=== PATIENT | female | born 1940 | race Caucasian/White ===

== ENCOUNTER 2017-07-21 16:10 | Observation (INO) | payer MEDICARE, OTHER ==
[2017-07-21] MEDS ORDERED: Albuterol/Ipratropium 3.0-0.5 MG/3 ML Neb Soln NEB ONE (16:20)
[2017-07-21] MEDS ORDERED: methylPREDNISolone Sodium Succinate 125 MG/2 ML SDV IVPUSH ONE (16:20)
[2017-07-21] MEDS ORDERED: Sodium Chloride 0.9% 10 ML Syringe FLUSH PRN (16:22)
[2017-07-21] MEDS ORDERED: Sodium Chloride 0.9% 2.5 ML Syringe FLUSH PRN (16:22)
--- NOTE | 2017-07-21 16:24 | EDM.PDOC ---
ED HPI GENERAL MEDICAL PROBLEM - General Chief Complaint: Respiratory Problem Stated Complaint: DIFFICULTY BREATHING Time Seen by Provider: 07/21/17 16:17 - History of Present Illness INITIAL COMMENTS - FREE TEXT/NARRATIVE: HISTORY AND PHYSICAL: History of present illness: Patient is 77-year-old white female history of severe COPD who was been medically noncompliant for years was on home O2 and is on no other therapy percent concern of shortness of breath that has gotten severe and has been progressively worse over last several days has been no chest pain vomiting reported or other concerns on arrival here patient is saturating in the 70s. She was placed on a nonrebreather upon arrival in the setting now in the low 90s but remains in moderate to severe distress. Review of systems: As per history of present illness and below otherwise all systems reviewed and negative. Past medical history: As per history of present illness and as reviewed below otherwise noncontributory. Surgical history: As per history of present illness and as reviewed below otherwise noncontributory. Social history: No reported history of drug or alcohol abuse. Family history: As per history of present illness and as reviewed below otherwise noncontributory. Physical exam: HEENT: Atraumatic, normocephalic, pupils reactive, negative for conjunctival pallor or scleral icterus, mucous membranes moist, throat clear, neck supple, nontender, trachea midline. Lungs: Markedly diminished, breath sounds equal bilaterally, chest nontender. Heart: S1S2, regular, negative for clicks, rubs, or JVD. Abdomen: Soft, nondistended, nontender. Negative for masses or hepatosplenomegaly. Negative for costovertebral tenderness. Pelvis: Stable nontender. Genitourinary: Deferred. Rectal: Deferred. Extremities: Atraumatic, negative for cords or calf pain. Neurovascular unremarkable. Neuro: Awake, alert, oriented. Cranial nerves II through XII unremarkable. Cerebellum unremarkable. Motor and sensory unremarkable throughout. Exam nonfocal. Diagnostics: CBC CMP troponin ABG influenza screen chest x-ray EKG PT/INR Therapeutics: IV O2 monitor albuterol ipratropium nebulizer Medrol 125 mg IV Impression: #1 COPD with exacerbation #2 medical noncompliance Definitive disposition and diagnosis as appropriate pending reevaluation and review of above. - Related Data Allergies Allergy/AdvReac Type Severity Reaction Status Date / Time No Known Allergies Allergy Verified 07/21/17 16:24 Home Meds: Home Meds . [No Known Home Meds] 07/21/17 [History] Past Medical History Respiratory History: Reports: COPD - Past Surgical History HEENT Surgical History: Reports: Other (See Below) Other HEENT Surgeries/Procedures: rhinoplasty GI Surgical History: Reports: Appendectomy Female Surgical History: Reports: Hysterectomy ED ROS GENERAL - Review of Systems Review Of Systems: ROS reveals no pertinent complaints other than HPI. ED EXAM, GENERAL - Physical Exam Exam: See Below (See dictation) Course - Vital Signs Last Recorded V/S: Last Vital Signs Temp 36.6 C 07/21/17 16:24 Pulse 81 07/21/17 16:24 Resp 28 H 07/21/17 16:24 BP 165/78 H 07/21/17 16:24 Pulse Ox 78 L 07/21/17 16:24 - Orders/Labs/Meds Orders: Active Orders 24 hr Category Date Time Status Cardiac Monitoring [RC] . DIRECTED Care 07/21/17 16:20 Active EKG Documentation Completion [RC] STAT Care 07/21/17 16:20 Active Oxygen Therapy, ED [RC] ASDIRECTED Care 07/21/17 16:20 Active Pulse Oximetry [RC] ASDIRECTED Care 07/21/17 16:20 Active RT Aerosol Therapy [RC] ASDIRECTED Care 07/21/17 16:22 Active Chest 1V Frontal [CR] Stat Exams 07/21/17 16:20 Ordered COMPREHENSIVE METABOLIC PN,CMP [CHEM] Stat Lab 07/21/17 16:40 Results INFLUENZA A+B AG SCREEN [RM] Stat Lab 07/21/17 17:19 Received INR,PT,PROTHROMBIN TIME [COAG] Stat Lab 07/21/17 16:20 Ordered TROPONIN I [CHEM] Stat Lab 07/21/17 16:40 Results UA W/MICROSCOPIC [URIN] Stat Lab 07/21/17 16:20 Ordered Sodium Chloride 0.9% [Normal Saline] 1,000 ml Med 07/21/17 16:30 Active IV STAT Sodium Chloride 0.9% [Saline Flush] Med 07/21/17 16:22 Active 10 ml FLUSH ASDIRECTED PRN Sodium Chloride 0.9% [Saline Flush] Med 07/21/17 16:22 Active 2.5 ml FLUSH ASDIRECTED PRN Saline Lock Insert [OM.PC] Stat Oth 07/21/17 16:20 Ordered Medication Orders Sodium Chloride (Normal Saline) 1,000 mls @ 125 mls/hr IV STAT MARIFER Last Admin: 07/21/17 16:59 Dose: 125 mls/hr Sodium Chloride (Saline Flush) 10 ml FLUSH ASDIRECTED PRN PRN Reason: Keep Vein Open Sodium Chloride (Saline Flush) 2.5 ml FLUSH ASDIRECTED PRN PRN Reason: Keep Vein Open Labs: Laboratory Tests 07/21/17 07/21/17 07/21/17 Range/Units 16:27 16:27 16:40 WBC 4.56 (4.0-11.0) K/uL RBC 4.53 (4.30-5.90) M/uL Hgb 13.9 (12.0-16.0) g/dL Hct 42.4 (36.0-46.0) % MCV 93.6 (80.0-98.0) fL MCH 30.7 (27.0-32.0) pg MCHC 32.8 (31.0-37.0) g/dL RDW Std Deviation 47.7 (28.0-62.0) fl RDW Coeff of Crissy 14 (11.0-15.0) % Plt Count 147 L (150-400) K/uL MPV 9.10 (7.40-12.00) fL Neut % (Auto) 51.9 (48.0-80.0) % Lymph % (Auto) 34.9 (16.0-40.0) % Park % (Auto) 8.8 (0.0-15.0) % Eos % (Auto) 3.7 (0.0-7.0) % Baso % (Auto) 0.7 (0.0-1.5) % Neut # (Auto) 2.4 (1.4-5.7) K/uL Lymph # (Auto) 1.6 (0.6-2.4) K/uL Park # (Auto) 0.4 (0.0-0.8) K/uL Eos # (Auto) 0.2 (0.0-0.7) K/uL Baso # (Auto) 0.0 (0.0-0.1) K/uL Nucleated RBC % 0.0 /100WBC Nucleated RBCs # 0 K/uL ABG pH (7.35-7.45) ABG pCO2 (35-45) mmHG ABG pO2 (75-100) mmHG ABG HCO3 (22-26) mEq/L ABG Total CO2 ABG Base Excess (-2.0-2.0) Sodium 140 (136-146) mmol/L Potassium 3.8 (3.5-5.1) mmol/L Chloride 103 (98-110) mmol/L Carbon Dioxide 26 (21-31) mmol/L BUN 17 (6.0-23.0) mg/dL Creatinine 0.8 (0.6-1.5) mg/dL Est Cr Clr Drug Dosing TNP Estimated GFR (MDRD) > 60.0 ml/min Glucose 113 H (60-110) mg/dL Calcium 9.9 (8.8-10.8) mg/dL Total Bilirubin 0.3 (0.1-1.5) mg/dL AST 23 (5-40) IU/L ALT 17 (8-54) IU/L Alkaline Phosphatase 64 (40-150) B-Natriuretic Peptide 53 (<100) PG/ML Total Protein 6.8 (6.0-8.0) g/dL Albumin 4.2 (3.4-4.8) g/dL Globulin 2.6 (2.0-3.5) g/dL Albumin/Globulin Ratio 1.6 (1.3-2.8) 07/21/17 Range/Units 16:45 WBC (4.0-11.0) K/uL RBC (4.30-5.90) M/uL Hgb (12.0-16.0) g/dL Hct (36.0-46.0) % MCV (80.0-98.0) fL MCH (27.0-32.0) pg MCHC (31.0-37.0) g/dL RDW Std Deviation (28.0-62.0) fl RDW Coeff of Crissy (11.0-15.0) % Plt Count (150-400) K/uL MPV (7.40-12.00) fL Neut % (Auto) (48.0-80.0) % Lymph % (Auto) (16.0-40.0) % Park % (Auto) (0.0-15.0) % Eos % (Auto) (0.0-7.0) % Baso % (Auto) (0.0-1.5) % Neut # (Auto) (1.4-5.7) K/uL Lymph # (Auto) (0.6-2.4) K/uL Park # (Auto) (0.0-0.8) K/uL Eos # (Auto) (0.0-0.7) K/uL Baso # (Auto) (0.0-0.1) K/uL Nucleated RBC % /100WBC Nucleated RBCs # K/uL ABG pH 7.441 (7.35-7.45) ABG pCO2 44 (35-45) mmHG ABG pO2 81 (75-100) mmHG ABG HCO3 30 H (22-26) mEq/L ABG Total CO2 26.4 ABG Base Excess 4.8 H (-2.0-2.0) Sodium (136-146) mmol/L Potassium (3.5-5.1) mmol/L Chloride (98-110) mmol/L Carbon Dioxide (21-31) mmol/L BUN (6.0-23.0) mg/dL Creatinine (0.6-1.5) mg/dL Est Cr Clr Drug Dosing Estimated GFR (MDRD) ml/min Glucose (60-110) mg/dL Calcium (8.8-10.8) mg/dL Total Bilirubin (0.1-1.5) mg/dL AST (5-40) IU/L ALT (8-54) IU/L Alkaline Phosphatase (40-150) B-Natriuretic Peptide (<100) PG/ML Total Protein (6.0-8.0) g/dL Albumin (3.4-4.8) g/dL Globulin (2.0-3.5) g/dL Albumin/Globulin Ratio (1.3-2.8) Meds: Medications Generic Name Dose Route Start Last Admin Trade Name Freq PRN Reason Stop Dose Admin Sodium Chloride 1,000 mls @ 125 mls/hr 07/21/17 16:30 07/21/17 16:59 Normal Saline IV 125 mls/hr STAT MARIFER Administration Sodium Chloride 10 ml 07/21/17 16:22 Saline Flush FLUSH ASDIRECTED PRN Keep Vein Open Sodium Chloride 2.5 ml 07/21/17 16:22 Saline Flush FLUSH ASDIRECTED PRN Keep Vein Open Discontinued Medications Generic Name Dose Route Start Last Admin Trade Name Thong PRN Reason Stop Dose Admin Albuterol/Ipratropium 3 ml 07/21/17 16:20 07/21/17 16:32 Duoneb 3.0-0.5 Mg/3 Ml NEB 07/21/17 16:21 3 ml ONETIME ONE Administration Methylprednisolone Sodium Succinate 125 mg 07/21/17 16:20 07/21/17 16:32 Solu-Medrol IVPUSH 07/21/17 16:21 125 mg ONETIME ONE Administration Departure - Departure Time of Disposition: 17:29 Disposition: Refer to Observation Condition: Good, Fair Clinical Impression: COPD exacerbation - Discharge Information Referrals: Samuel Zamora [Primary Care Provider] - Forms: ED Department Discharge - My Orders Last 24 Hours: My Active Orders 07/21/17 16:20 Cardiac Monitoring [RC] . DIRECTED EKG Documentation Completion [RC] STAT Oxygen Therapy, ED [RC] ASDIRECTED Pulse Oximetry [RC] ASDIRECTED Chest 1V Frontal [CR] Stat INR,PT,PROTHROMBIN TIME [COAG] Stat UA W/MICROSCOPIC [URIN] Stat Saline Lock Insert [OM.PC] Stat 07/21/17 16:22 RT Aerosol Therapy [RC] ASDIRECTED Sodium Chloride 0.9% [Saline Flush] 10 ml FLUSH ASDIRECTED PRN Sodium Chloride 0.9% [Saline Flush] 2.5 ml FLUSH ASDIRECTED PRN 07/21/17 16:30 Sodium Chloride 0.9% [Normal Saline] 1,000 ml IV STAT 07/21/17 16:40 COMPREHENSIVE METABOLIC PN,CMP [CHEM] Stat TROPONIN I [CHEM] Stat 07/21/17 17:19 INFLUENZA A+B AG SCREEN [RM] Stat - Assessment/Plan Last 24 Hours: My Active Orders 07/21/17 16:20 Cardiac Monitoring [RC] . DIRECTED EKG Documentation Completion [RC] STAT Oxygen Therapy, ED [RC] ASDIRECTED Pulse Oximetry [RC] ASDIRECTED Chest 1V Frontal [CR] Stat INR,PT,PROTHROMBIN TIME [COAG] Stat UA W/MICROSCOPIC [URIN] Stat Saline Lock Insert [OM.PC] Stat 07/21/17 16:22 RT Aerosol Therapy [RC] ASDIRECTED Sodium Chloride 0.9% [Saline Flush] 10 ml FLUSH ASDIRECTED PRN Sodium Chloride 0.9% [Saline Flush] 2.5 ml FLUSH ASDIRECTED PRN 07/21/17 16:30 Sodium Chloride 0.9% [Normal Saline] 1,000 ml IV STAT 07/21/17 16:40 COMPREHENSIVE METABOLIC PN,CMP [CHEM] Stat TROPONIN I [CHEM] Stat 07/21/17 17:19 INFLUENZA A+B AG SCREEN [RM] Stat
[2017-07-21] MEDS ORDERED: Sodium Chloride 0.9% 1,000 ML IV SCH (16:30)
[2017-07-21 17:21] LABS: CHLORIDE,CL 103 mmol/L (98-110); SODIUM,NA 140 mmol/L (136-146)
[2017-07-21] MEDS ORDERED: Morphine 2 MG/ML Syringe IVPUSH PRN (18:20)
[2017-07-21] MEDS ORDERED: Acetaminophen 325 MG Tab PO PRN (18:20)
[2017-07-21] MEDS ORDERED: Ondansetron 4 MG Tab.DIS PO PRN (18:20)
[2017-07-21] MEDS ORDERED: Ondansetron 4 MG/2 ML SDV IVPUSH PRN (18:20)
--- NOTE | 2017-07-21 18:20 | PCM.HP ---
H&P History of Present Illness - General Date of Service: 07/21/17 Admit Problem/Dx: Admission Diagnosis/Problem Admission Diagnosis/Problem COPD, Moderate chronic obstructive pulmonary disease Source of Information: Patient, Family History Limitations: Reports: No Limitations - History of Present Illness Initial Comments - Free Text/Narative: 77-year-old email presenting to emergency department with chief complaint of shortness of breath 2-3 days with past medical history of severe end-stage COPD on supplemental home O2 2 L per nasal cannula and history of medication noncompliance. Patient initially presented to the emergency department with a chief complaint of shortness of breath significantly getting worse over the past 2-3 days. She states that it has been getting worse over the past 3 months. She has a history of severe COPD end stage and has been noncompliant in the past with her medications. She does see Dr. Zamora as her PCP. She denies any chest pain, palpitations, syncopal episodes, focal neurologic deficits, nausea, vomiting, or sore throat. She does report some suprapubic tenderness. Approximately 1 month ago she was diagnosed with a UTI by her PCP Dr. Zamora. E. faecalis was the isolated organism and she was treated at that time. She did not receive her influenza vaccine this year. When she initially presented to emergency department her oxygen saturation was in the 70s. After placement of nonrebreather as well duo nebs and Solu-Medrol patient did improve to low 90s. Emergency department: CBC, INR, ABG, CMP, chest x-ray were all unremarkable. Influenza screen was negative. Urinalysis was pending. BNP and troponin unremarkable. Patient was given 1 L normal saline as well as 125 mg IV Solu-Medrol and duo nebs 1. Patient was admitted for moderate COPD exacerbation. - Related Data Allergies/Adverse Reactions: Allergies Allergy/AdvReac Type Severity Reaction Status Date / Time No Known Allergies Allergy Verified 07/21/17 16:24 Home Medications: Home Meds . [No Known Home Meds] 07/21/17 [History] Past Medical History HEENT History: Reports: None Cardiovascular History: Reports: None Respiratory History: Reports: COPD Gastrointestinal History: Reports: None Genitourinary History: Reports: None HOUSEKEEPER HEAD History: Reports: None Musculoskeletal History: Reports: None Neurological History: Reports: None Psychiatric History: Reports: None Endocrine/Metabolic History: Reports: None Hematologic History: Reports: None Immunologic History: Reports: None Oncologic (Cancer) History: Reports: None Dermatologic History: Reports: None - Infectious Disease History Infectious Disease History: Reports: Chicken Pox, Measles, Mumps, Shingles - Past Surgical History HEENT Surgical History: Reports: Other (See Below) Other HEENT Surgeries/Procedures: rhinoplasty GI Surgical History: Reports: Appendectomy Female Surgical History: Reports: Hysterectomy Social & Family History - Family History Family Medical History: Noncontributory - Tobacco Use Smoking Status *Q: Never Smoker Second Hand Smoke Exposure: No - Caffeine Use Caffeine Use: Reports: Coffee - Recreational Drug Use Recreational Drug Use: No H&P Review of Systems - Review of Systems: Review Of Systems: See Below General: Reports: Weakness, Fatigue. Denies: Fever, Chills, Malaise HEENT: Denies: Dysphasia, Headaches, Sore Throat Pulmonary: Reports: Shortness of Breath, Wheezing, Cough. Denies: Pleuritic Chest Pain, Sputum Cardiovascular: Denies: Chest Pain, Palpitations, Edema Gastrointestinal: Denies: Abdominal Pain, Black Stool, Bloody Stool, Constipation, Diarrhea, Nausea, Vomiting Genitourinary: Reports: Pain. Denies: Dysuria, Burning, Hematuria, Flank Pain Musculoskeletal: Denies: Neck Pain, Leg Pain Skin: Denies: Cyanosis Psychiatric: Denies: Confusion Neurological: Denies: Confusion, Dizziness, Headache Hematologic/Lymphatic: Denies: Anemia Immunologic: Denies: Anaphylaxis Exam - Exam Exam: See Below - Vital Signs Vital Signs: Last Vital Signs Temp 97.8 F 07/21/17 16:24 Pulse 84 07/21/17 18:11 Resp 20 07/21/17 18:11 BP 170/70 H 07/21/17 18:11 Pulse Ox 96 07/21/17 18:11 Weight: 48.534 kg - Exam Quality Assessment: Supplemental Oxygen, DVT Prophylaxis General: Alert, Oriented, Cooperative, Mild Distress HEENT: Conjunctiva Clear, EACs Clear, EOMI, Hearing Intact, Mucosa Moist & [place] , Nares Patent, Normal Nasal Septum, Posterior Pharynx Clear, PERRLA Neck: Supple, Trachea Midline, 2 Lungs: Normal Respiratory Effort, Decreased Breath Sounds, Wheezing Cardiovascular: Regular Rate, Regular Rhythm GI/Abdominal Exam: Normal Bowel Sounds, Soft, No Organomegaly, No Distention, Tender (Suprapubic) (Female) Exam: Deferred Rectal (Female) Exam: Deferred Back Exam: Normal Inspection Extremities: Normal Inspection, Non-Tender, No Pedal Edema, Normal Capillary Refill Peripheral Pulses: 2+: Radial (L), Radial (R), Posterior Tibial (L), Posterior Tibial (R), Dorsalis Pedis (L), Dorsalis Pedis (R) Skin: Warm, Dry, Intact Neurological: Cranial Nerves Intact Neuro Extensive - Mental Status: Alert, Oriented x3, Normal Mood/Affect, Normal Cognition Neuro Extensive - Motor, Sensory, Reflexes: CN II-XII Intact Psychiatric: Alert, Normal Affect, Normal Mood - Patient Data Result Diagrams: 07/21/17 16:27 07/21/17 16:40 *Q Meaningful Use (ADM) - VTE *Q VTE Criteria *Q: - Stroke *Q Stroke Criteria *Q: - AMI *Q AMI Criteria *Q: - Problem List (1) On home oxygen therapy SNOMED Code(s): 020173010073 ICD Code: Z99.81 - DEPENDENCE ON SUPPLEMENTAL OXYGEN Status: Chronic Priority: High Current Visit: Yes (2) COPD exacerbation SNOMED Code(s): 392974178 ICD Code: J44.1 - CHRONIC OBSTRUCTIVE PULMONARY DISEASE W (ACUTE) EXACERBATION Status: Acute Priority: High Current Visit: Yes Problem List Initiated/Reviewed/Updated: Yes Orders Last 24hrs: Medication Orders Sodium Chloride (Normal Saline) 1,000 mls @ 125 mls/hr IV STAT MARIFER Last Admin: 07/21/17 16:59 Dose: 125 mls/hr Sodium Chloride (Saline Flush) 10 ml FLUSH ASDIRECTED PRN PRN Reason: Keep Vein Open Sodium Chloride (Saline Flush) 2.5 ml FLUSH ASDIRECTED PRN PRN Reason: Keep Vein Open Assessment/Plan Comment:: 77-year-old female admitted 07/21/17 for moderate COPD exacerbation with past medical history of end-stage COPD on home oxygen 2 L per nasal cannula. COPD exacerbation: We'll treat with Solu-Medrol 60 mg every 6 hours, DuoNeb's, and azithromycin 500 mg 1 today followed by 250 mg daily. Will monitor closely. Patient has been noncompliant in the past with her medications. She currently states that she does not take anything at home. She should be on multiple medications which will need to be discussed with the patient. Urinalysis is still pending at this time but patient does have a recent history of UTI and does have some mild suprapubic tenderness. There is no leukocytosis and patient was afebrile. Will monitor and wait for urinalysis to return. Talking with patient and daughter they are considering [facility] home placement for at least assisted living. We will need to talk to social media manager as this may be facilitated easier during this admission. VTE proph: SCD, heparin Dispo: 2-3 days pending
[2017-07-21] MEDS ORDERED: Azithromycin 250 MG Tab PO ONE (18:30)
[2017-07-21] MEDS: Albuterol/Ipratropium 3.0-0.5 MG/3 ML Neb Soln NEB SCH ×2 (20:13→23:41)
[2017-07-21] MEDS: methylPREDNISolone Sodium Succinate 125 MG/2 ML SDV IVPUSH SCH (21:59)
[2017-07-21] MEDS: Heparin Sodium 5,000 Units/ML Vial SUBCUT SCH (21:59)
[2017-07-22] MEDS: methylPREDNISolone Sodium Succinate 125 MG/2 ML SDV IVPUSH SCH ×2 (04:00→09:21)
[2017-07-22] MEDS: Albuterol/Ipratropium 3.0-0.5 MG/3 ML Neb Soln NEB SCH ×2 (05:55→11:29)
[2017-07-22 06:37] LABS: CHLORIDE,CL 107 mmol/L (98-110); SODIUM,NA 141 mmol/L (136-146)
[2017-07-22] MEDS: Heparin Sodium 5,000 Units/ML Vial SUBCUT SCH (09:22)
--- NOTE | 2017-07-22 11:44 | PCM.DCSUM1 ---
Discharge Summary - Hospital Course HPI Initial Comments: Discharge Summary Date of admission: 07/21/2017 Date of discharge: 07/22/2017 Admitting diagnosis: #1. Acute exacerbation of severe COPD symptoms with noncompliance to medication #2. Past medical history of urinary tract infection, sacral ulcers, increased need of assistance for daily living #3. #4. #5. Discharge diagnoses: #1. Acute exacerbation of severe COPD symptoms now resolving. #2. Past medical history tract infection patient in nature, sacral ulcers, increased need of assistance for daily living #3. #4. #5. Consultations: None Procedures: None Hospitalization course: Patient was admitted on 07/21/2018 secondary to moderate to severe exacerbation of her COPD symptoms. Patient is on baseline 2 L nasal cannula she required increased O2 support. Patient was put on Solu-Medrol 60 mg every 6 hours, dual nebs, azithromycin. Overnight patient started to do well from her COPD standpoint and when assessed on 07/22/2017 patient's COPD symptoms seem to be back to baseline. Patient stated that she does not take any inhaled medication for her COPD. Patient seems to be noncompliant with her medications. Decision was made to discharge the patient home on home health care. For home health : #1. Homebound: Patient is unsteady when she walks and is a fall risk she does need a walker to get around and ambulate safely and needs assistance from her daughters to navigate stairs and general ambulatory movements. Patient also has a sacral ulcer that also requires continuing attention. #2 need for skilled services: Patient requires RN to monitor medication administration and education. Patient is noncompliant with her medications and as result does need that increased monitoring. Patient also needs assessment of her sacral ulcer wound healing and assistance with dressing changes. #3 primary M.D. who will be following the patient at home: Dr. Samuel Zamora shall be following the patient for home health once discharged from the hospital. Disposition on discharge: Home with home health Condition on discharge: Stable Discharge medications: #1. Prednisone taper 16 days, #2 azithromycin for 5 days 250 mg #3 ipratropium inhaler daily, #4 salmeterol inhaler twice a day, #5. Albuterol inhaler when necessary for shortness of breath Follow-up instructions: Patient to follow-up with primary care physician Dr. Samuel Zamora as well as home health. - Discharge Data Discharge Date: 07/22/17 Discharge Disposition: Home, W Home Health Agency 06 Condition: Fair - Patient Instructions Diet: Heart Healthy Diet Activity: As Tolerated Driving: Do Not Drive Showering/Bathing: May Shower Notify Provider of: Fever, Increased Pain - Discharge Plan Prescriptions/Med Rec: Albuterol [IJP: Ventolin HFA] 2 puff INH .TWICE DAILY PRN 30 Days #18 gm PRN Reason: Shortness Of Breath Azithromycin [IMW: Azithromycin] 250 mg PO DAILY #5 tab Ipratropium [place] [Atrovent Hfa] 12.9 gm IH DAILY 30 Days #1 hfa.aer.ad Prednisone [IMW: predniSONE] See Taper PO WITHBREAKFAST #20 tab Salmeterol Xinafoate [Serevent Diskus] 1 puff INH Q12H 30 Days #1 diskus Home Medications: Home Meds Albuterol [IJP: Ventolin HFA] 2 puff INH .TWICE DAILY PRN 30 Days #18 gm [Rx] Azithromycin [IMW: Azithromycin] 250 mg PO DAILY #5 tab 07/22/17 [Rx] Ipratropium [place] [Atrovent Hfa] 12.9 gm IH DAILY 30 Days #1 hfa.aer.ad [Rx] Prednisone [IMW: predniSONE] See Taper PO WITHBREAKFAST #20 tab 07/22/17 [Rx] Salmeterol Xinafoate [Serevent Diskus] 1 puff INH Q12H 30 Days #1 diskus [Rx] Forms: ED Department Discharge Referrals: Samuel Zamora [Primary Care Provider] - - Discharge Summary/Plan Comment DC Time >30 min.: No - Patient Data Vitals - Most Recent: Last Vital Signs Temp 36.9 C 07/22/17 08:00 Pulse 107 H 07/22/17 08:00 Resp 20 07/22/17 08:00 BP 128/62 07/22/17 08:00 Pulse Ox 91 L 07/22/17 08:00 Weight - Most Recent: 48.534 kg I&O - Last 24 hours: Intake & Output 07/21/17 07/22/17 07/22/17 22:59 06:59 14:59 Intake Total 1300 Output Total 400 Balance 900 Lab Results - Last 24 hrs: Laboratory Results - last 24 hr 07/22/17 07/22/17 07/22/17 Range/Units 06:03 06:03 08:10 WBC 3.74 L (4.0-11.0) K/uL RBC 3.99 L (4.30-5.90) M/uL Hgb 12.0 (12.0-16.0) g/dL Hct 37.3 (36.0-46.0) % MCV 93.5 (80.0-98.0) fL MCH 30.1 (27.0-32.0) pg MCHC 32.2 (31.0-37.0) g/dL RDW Std Deviation 48.7 (28.0-62.0) fl RDW Coeff of Crissy 14 (11.0-15.0) % Plt Count 156 (150-400) K/uL MPV 9.20 (7.40-12.00) fL Neut % (Auto) 89.3 H (48.0-80.0) % Lymph % (Auto) 10.2 L (16.0-40.0) % [place] % (Auto) 0.5 (0.0-15.0) % Eos % (Auto) 0.0 (0.0-7.0) % Baso % (Auto) 0.0 (0.0-1.5) % Neut # (Auto) 3.3 (1.4-5.7) K/uL Lymph # (Auto) 0.4 L (0.6-2.4) K/uL [place] # (Auto) 0.0 (0.0-0.8) K/uL Eos # (Auto) 0.0 (0.0-0.7) K/uL Baso # (Auto) 0.0 (0.0-0.1) K/uL Nucleated RBC % 0.0 /100WBC Nucleated RBCs # 0 K/uL Sodium 141 (136-146) mmol/L Potassium 3.7 (3.5-5.1) mmol/L Chloride 107 (98-110) mmol/L Carbon Dioxide 25 (21-31) mmol/L BUN 15 (6.0-23.0) mg/dL Creatinine 0.7 (0.6-1.5) mg/dL Est Cr Clr Drug Dosing 53.20 mL/min Estimated GFR (MDRD) > 60.0 ml/min Glucose 142 H (60-110) mg/dL Calcium 9.4 (8.8-10.8) mg/dL Phosphorus 3.7 (2.4-4.7) mg/dL Magnesium 1.6 (1.5-2.3) mEq/L Urine Color YELLOW Urine Appearance CLEAR Urine pH 6.0 (5.0-8.0) Ur Specific [place] 1.020 (1.001-1.035) Urine Protein NEGATIVE (NEGATIVE) mg/dL Urine Glucose (UA) 500 H (NEGATIVE) mg/dL Urine Ketones TRACE H (NEGATIVE) mg/dL Urine Occult Blood NEGATIVE (NEGATIVE) Urine Nitrite NEGATIVE (NEGATIVE) Urine Bilirubin NEGATIVE (NEGATIVE) Urine Urobilinogen 0.2 (<2.0) EU/dL Ur Leukocyte Esterase NEGATIVE (NEGATIVE) Urine RBC 0-1 (0-2/HPF) Urine WBC 0-2 (0-5/HPF) Ur Epithelial Cells FEW (NONE-FEW) Urine Bacteria FEW (NEGATIVE) Urine Mucus LIGHT (NONE-MOD) Med Orders - Current: Current Medications Acetaminophen (Tylenol) 650 mg PO Q4H PRN PRN Reason: Pain (Mild 1-3)/fever Albuterol/Ipratropium (Duoneb 3.0-0.5 Mg/3 Ml) 3 ml NEB Q6HRRT [facility] Last Admin: 07/22/17 11:29 Dose: 3 ml Azithromycin (Zithromax) 250 mg PO Q24H [facility] Heparin Sodium (Porcine) (Heparin Sodium) 5,000 units SUBCUT Q12H [facility] Last Admin: 07/22/17 09:22 Dose: 5,000 units Methylprednisolone Sodium Succinate (Solu-Medrol) 60 mg IVPUSH Q6H [facility] Last Admin: 07/22/17 09:21 Dose: 60 mg Morphine Sulfate (Morphine) 2 mg IVPUSH Q2H PRN PRN Reason: Pain (severe 7-10) Stop: 07/22/17 18:22 Ondansetron HCl (Zofran Odt) 4 mg PO Q4H PRN PRN Reason: nausea, able to take PO Ondansetron HCl (Zofran) 4 mg IVPUSH Q4H PRN PRN Reason: Nausea Sodium Chloride (Saline Flush) 10 ml FLUSH ASDIRECTED PRN PRN Reason: Keep Vein Open Sodium Chloride (Saline Flush) 2.5 ml FLUSH ASDIRECTED PRN PRN Reason: Keep Vein Open Discontinued Medications Albuterol/Ipratropium (Duoneb 3.0-0.5 Mg/3 Ml) 3 ml NEB ONETIME ONE Stop: 07/21/17 16:21 Last Admin: 07/21/17 16:32 Dose: 3 ml Azithromycin (Zithromax) 500 mg PO NOW ONE Stop: 07/21/17 18:31 Last Admin: 07/21/17 19:01 Dose: 500 mg Sodium Chloride (Normal Saline) 1,000 mls @ 125 mls/hr IV STAT [facility] Last Admin: 07/21/17 16:59 Dose: 125 mls/hr Methylprednisolone Sodium Succinate (Solu-Medrol) 125 mg IVPUSH ONETIME ONE Stop: 07/21/17 16:21 Last Admin: 07/21/17 16:32 Dose: 125 mg *Q Meaningful Use (DIS) - VTE *Q VTE Criteria *Q: - Stroke *Q Stroke Criteria *Q: - AMI *Q AMI Criteria *Q:
--- NOTE | 2017-07-22 13:44 | CR ---
EXAM DATE: 07/21/17 PATIENT'S AGE: 77 Patient: DEREK ROSS Facility: [place], [place] Site . Site : [id number] Study: XRay Chest [id number] 5:43:23 PM Ordering Physician: Tia Kaufman Final Report: Pain shortness of breath. Single view of the chest. FINDINGS: Normal cardiac mediastinal silhouette. Lungs are hyperinflated. No acute airspace or interstitial process. IMPRESSION: 1. No acute pulmonary process. Dictated by Belinda Loomis MD @ Jul 21 2017 5:46PM (Electronic Signature) Report Signed by Proxy. JOSHUA
[2017-07-22] MEDS ORDERED: Azithromycin 250 MG Tab PO SCH (18:00)
== END 2017-07-22 15:10 | disposition home health service (06) ==
LOC: MW.ED 16:10 → MW.MS 17:32
PROVIDERS: ADMIT Family Medicine; ATTEND Family Medicine
DX: J44.1 Chronic obstructive pulmonary disease with (acute) exacerbation (principal); L89.159 Pressure ulcer of sacral region, unspecified stage; Z79.899 Other long term (current) drug therapy; Z91.14 Patient's other noncompliance with medication regimen; Z87.440 Personal history of urinary (tract) infections; Z99.81 Dependence on supplemental oxygen; Z90.49 Acquired absence of other specified parts of digestive tract; Z90.710 Acquired absence of both cervix and uterus
CPT/HCPCS: 36415; 36600; 71045; 80048; 80053; 81001; 82803; 83735; 83880; 84100; 84484; 85025; 85610; 87086; 87804; 93005; 94640; 96361; 96372; 96374; 96376; 99285; A9270; G0378; J1644; J2930; J7040; 87186; 99283

== ENCOUNTER 2018-08-01 16:26 | Emergency (ER) | payer MEDICARE, OTHER ==
[2018-08-01] MEDS ORDERED: Sodium Chloride 0.9% 2.5 ML Syringe FLUSH PRN (16:40)
[2018-08-01] MEDS ORDERED: Sodium Chloride 0.9% 10 ML Syringe FLUSH PRN (16:40)
[2018-08-01] MEDS ORDERED: Albuterol/Ipratropium 3.0-0.5 MG/3 ML Neb Soln NEB ONE (16:45)
[2018-08-01] MEDS ORDERED: methylPREDNISolone Sodium Succinate 125 MG/2 ML SDV IVPUSH ONE (16:45)
--- NOTE | 2018-08-01 16:46 | EDM.PDOC ---
ED HPI GENERAL MEDICAL PROBLEM - General Chief Complaint: Fever Stated Complaint: ALIA TAYLOR Time Seen by Provider: 08/01/18 16:28 Source of Information: Reports: EMS History Limitations: Reports: No Limitations - History of Present Illness INITIAL COMMENTS - FREE TEXT/NARRATIVE: History of present illness: []Patient was transferred here by ambulance from [facility] for a septic workup requested by Dr. Carbajal. She has been coughing and running a fever. She denies any shortness of breath or chest pain. She has a history of paranoia is questioning why she is here. She states she does not feel ill. Review of systems: As per history of present illness and below otherwise all systems reviewed and negative. Past medical history: As per history of present illness and as reviewed below otherwise noncontributory. Surgical history: As per history of present illness and as reviewed below otherwise noncontributory. Social history: No reported history of drug or alcohol abuse. Family history: As per history of present illness and as reviewed below otherwise noncontributory. Physical exam: General: Well developed, cachectic, in NAD HEENT: Atraumatic, normocephalic, pupils reactive, negative for conjunctival pallor or scleral icterus, mucous membranes moist, throat clear, neck supple, nontender, trachea midline. Lungs: Clear to auscultation, crit breath sounds equal bilaterally, chest nontender. Heart: S1S2, regular, negative for clicks, rubs, or JVD. Abdomen: NABS, Soft, nondistended, nontender. Negative for masses or hepatosplenomegaly. Negative for costovertebral tenderness. Pelvis: Stable nontender. Genitourinary: Deferred. Rectal: Deferred. Extremities: Atraumatic, negative for cords or calf pain. Neurovascular unremarkable. Neuro: Awake, alert, oriented. Cranial nerves II through XII unremarkable. Cerebellum unremarkable. Motor and sensory unremarkable throughout. Exam nonfocal. Skin:warm and dry Diagnostics: Blood cultures, lactate, CBC, chemistry, chest x-ray, EKG, Therapeutics: Solu-Medrol, DuoNeb ED Course: Improved Impression: Medical screening exam Prescriptions: None Plan: Follow-up primary care, continue regular meds as directed return if symptoms worsen or change Definitive disposition and diagnosis as appropriate pending reevaluation and review of above. Headache Pain Score (Numeric/FACES): 6 - Related Data Allergies Allergy/AdvReac Type Severity Reaction Status Date / Time No Known Allergies Allergy Verified 08/01/18 16:34 Home Meds: Home Meds . [No Known Home Meds] 08/01/18 [History] Past Medical History HEENT History: Reports: None Cardiovascular History: Reports: None Respiratory History: Reports: COPD Gastrointestinal History: Reports: None Genitourinary History: Reports: None BAR STAFF History: Reports: None Musculoskeletal History: Reports: None Neurological History: Reports: None Psychiatric History: Reports: None Endocrine/Metabolic History: Reports: None Hematologic History: Reports: None Immunologic History: Reports: None Oncologic (Cancer) History: Reports: None Dermatologic History: Reports: None - Infectious Disease History Infectious Disease History: Reports: Chicken Pox, Measles, Mumps, Shingles - Past Surgical History Head Surgeries/Procedures: Reports: None HEENT Surgical History: Reports: Other (See Below) Other HEENT Surgeries/Procedures: rhinoplasty GI Surgical History: Reports: Appendectomy Female Surgical History: Reports: Hysterectomy Social & Family History - Family History Family Medical History: Noncontributory - Tobacco Use Smoking Status *Q: Unknown Ever Smoked - Caffeine Use Caffeine Use: Reports: Coffee - Recreational Drug Use Recreational Drug Use: No ED ROS GENERAL - Review of Systems Review Of Systems: ROS reveals no pertinent complaints other than HPI. ED EXAM, GENERAL - Physical Exam Exam: See Below (See history of present illness) Course - Vital Signs Last Recorded V/S: Last Vital Signs Temp 100.1 F 08/01/18 16:30 Pulse 105 H 08/01/18 16:30 Resp 22 H 08/01/18 16:30 BP 105/59 L 08/01/18 16:30 Pulse Ox 92 L 08/01/18 17:02 - Orders/Labs/Meds Orders: Active Orders 24 hr Category Date Time Status EKG Documentation Completion [RC] STAT Care 08/01/18 16:41 Active RT Aerosol Therapy [RC] ASDIRECTED Care 08/01/18 16:45 Active CULTURE BLOOD [BC] Stat Lab 08/01/18 16:36 Received CULTURE BLOOD [BC] Stat Lab 08/01/18 17:37 Received Sodium Chloride 0.9% [Saline Flush] Med 08/01/18 16:40 Active 10 ml FLUSH ASDIRECTED PRN Sodium Chloride 0.9% [Saline Flush] Med 08/01/18 16:40 Active 2.5 ml FLUSH ASDIRECTED PRN Blood Culture x2 Reflex Set [OM.PC] Stat Ot 08/01/18 16:41 Ordered Saline Lock Insert [OM.PC] Stat Ot 08/01/18 16:40 Ordered Medication Orders Sodium Chloride (Saline Flush) 10 ml FLUSH ASDIRECTED PRN PRN Reason: Keep Vein Open Sodium Chloride (Saline Flush) 2.5 ml FLUSH ASDIRECTED PRN PRN Reason: Keep Vein Open Labs: Laboratory Tests 08/01/18 08/01/18 08/01/18 Range/Units 16:30 16:36 16:36 WBC 4.71 (4.0-11.0) K/uL RBC 3.97 L (4.30-5.90) M/uL Hgb 12.4 (12.0-16.0) g/dL Hct 37.5 (36.0-46.0) % MCV 94.5 (80.0-98.0) fL MCH 31.2 (27.0-32.0) pg MCHC 33.1 (31.0-37.0) g/dL RDW Std Deviation 47.4 (28.0-62.0) fl RDW Coeff of Crissy 14 (11.0-15.0) % Plt Count 150 (150-400) K/uL MPV 9.80 (7.40-12.00) fL Neut % (Auto) 72.6 (48.0-80.0) % Lymph % (Auto) 11.9 L (16.0-40.0) % [place] % (Auto) 14.9 (0.0-15.0) % Eos % (Auto) 0.2 (0.0-7.0) % Baso % (Auto) 0.4 (0.0-1.5) % Neut # (Auto) 3.4 (1.4-5.7) K/uL Lymph # (Auto) 0.6 (0.6-2.4) K/uL [place] # (Auto) 0.7 (0.0-0.8) K/uL Eos # (Auto) 0.0 (0.0-0.7) K/uL Baso # (Auto) 0.0 (0.0-0.1) K/uL Nucleated RBC % 0.0 /100WBC Nucleated RBCs # 0 K/uL Lactate 0.9 (0.20-2.00) mmol/L Sodium 136 (136-145) mmol/L Potassium 4.0 (3.5-5.1) mmol/L Chloride 98 (98-107) mmol/L Carbon Dioxide 27.4 (21.0-32.0) mmol/L BUN 15 (7.0-18.0) mg/dL Creatinine 0.6 (0.6-1.0) mg/dL Est Cr Clr Drug Dosing 61.69 mL/min Estimated GFR (MDRD) > 60.0 ml/min Glucose 109 H (74-106) mg/dL Calcium 9.1 (8.5-10.1) mg/dL Total Bilirubin 0.4 (0.2-1.0) mg/dL AST 40 H (15-37) IU/L ALT 30 (14-63) IU/L Alkaline Phosphatase 55 (46-116) U/L Total Protein 6.6 (6.4-8.2) g/dL Albumin 3.8 (3.4-5.0) g/dL Globulin 2.8 (2.6-4.0) g/dL Albumin/Globulin Ratio 1.4 (0.9-1.6) Meds: Medications Generic Name Dose Route Start Last Admin Trade Name Emersonq PRN Reason Stop Dose Admin Sodium Chloride 10 ml 08/01/18 16:40 Saline Flush FLUSH ASDIRECTED PRN Keep Vein Open Sodium Chloride 2.5 ml 08/01/18 16:40 Saline Flush FLUSH ASDIRECTED PRN Keep Vein Open Discontinued Medications Generic Name Dose Route Start Last Admin Trade Name Freq PRN Reason Stop Dose Admin Albuterol/Ipratropium 3 ml 08/01/18 16:45 08/01/18 17:00 Duoneb 3.0-0.5 Mg/3 Ml NEB 08/01/18 16:46 3 ml ONETIME ONE Administration Methylprednisolone Sodium Succinate 125 mg 08/01/18 16:45 08/01/18 17:06 Solu-Medrol IVPUSH 08/01/18 16:46 125 mg ONETIME ONE Administration Departure - Departure Time of Disposition: 17:58 Disposition: Home, Self-Care 01 Condition: Good Clinical Impression: Encounter for medical screening examination - Discharge Information *PRESCRIPTION DRUG MONITORING PROGRAM REVIEWED*: No *COPY OF PRESCRIPTION DRUG MONITORING REPORT IN PATIENT CISCO: No Referrals: PCP,Unknown [Primary Care Provider] - Forms: ED Department Discharge Additional Instructions: The following information is given to patients seen in the emergency department who are being discharged to home. This information is to outline your options for follow-up care. We provide all patients seen in our emergency department with a follow-up referral. The need for follow-up, as well as the timing and circumstances, are variable depending upon the specifics of your emergency department visit. If you don't have a primary care physician on staff, we will provide you with a referral. We always advise you to contact your personal physician following an emergency department visit to inform them of the circumstance of the visit and for follow-up with them and/or the need for any referrals to a consulting specialist. The emergency department will also refer you to a specialist when appropriate. This referral assures that you have the opportunity for follow-up care with a specialist. All of these measure are taken in an effort to provide you with optimal care, which includes your follow-up. Under all circumstances we always encourage you to contact your private physician who remains a resource for coordinating your care. When calling for follow-up care, please make the office aware that this follow-up is from your recent emergency room visit. If for any reason you are refused follow-up, please contact the [facility] Emergency Department at and asked to speak to the emergency department charge nurse. [facility] [address] [place] [id number] - My Orders Last 24 Hours: My Active Orders 08/01/18 16:36 CULTURE BLOOD [BC] Stat 08/01/18 16:40 Sodium Chloride 0.9% [Saline Flush] 10 ml FLUSH ASDIRECTED PRN Sodium Chloride 0.9% [Saline Flush] 2.5 ml FLUSH ASDIRECTED PRN Saline Lock Insert [OM.PC] Stat 08/01/18 16:41 EKG Documentation Completion [RC] STAT Blood Culture x2 Reflex Set [OM.PC] Stat 08/01/18 16:45 RT Aerosol Therapy [RC] ASDIRECTED 08/01/18 17:37 CULTURE BLOOD [BC] Stat - Assessment/Plan Last 24 Hours: My Active Orders 08/01/18 16:36 CULTURE BLOOD [BC] Stat 08/01/18 16:40 Sodium Chloride 0.9% [Saline Flush] 10 ml FLUSH ASDIRECTED PRN Sodium Chloride 0.9% [Saline Flush] 2.5 ml FLUSH ASDIRECTED PRN Saline Lock Insert [OM.PC] Stat 08/01/18 16:41 EKG Documentation Completion [RC] STAT Blood Culture x2 Reflex Set [OM.PC] Stat 08/01/18 16:45 RT Aerosol Therapy [RC] ASDIRECTED 08/01/18 17:37 CULTURE BLOOD [BC] Stat
[2018-08-01 17:19] LABS: CHLORIDE,CL 98 mmol/L (98-107); SODIUM,NA 136 mmol/L (136-145)
--- NOTE | 2018-08-01 18:01 | CR ---
Indication: Chest pain, cough, shortness of breath Technique: Chest 1 view Comparison: July 21, 2017 Findings/Impression: Normal cardiac size. Attenuation of the vascular markings in the upper lobe suggests emphysema. Lungs are mildly hyperexpanded. No focal infiltrate, effusion, or pneumothorax. No acute osseous abnormality. Dictated by Elizabeth Mullins MD @ Aug 01 2018 5:58PM Signed by Dr. Elizabeth Mullins @ Aug 01 2018 6:00PM
== END 2018-08-01 18:55 | disposition home or self-care (01) ==
LOC: MW.ED 16:26
DX: Z13.9 Encounter for screening, unspecified (principal); J44.9 Chronic obstructive pulmonary disease, unspecified
CPT/HCPCS: 71045; 80053; 83605; 85025; 87040; 93005; 94640; 96374; 99284; J2930; 99283; J7620-GY